=== PATIENT | female | born 1965 | race Caucasian/White ===

== ENCOUNTER 2018-09-13 16:35 | Emergency (ER) | payer OTHER ==
[2018-09-13 16:43] VITALS: RESP 18
[2018-09-13] MEDS ORDERED: AMOXIC-POT CLAV 875-125MG 1 EACH TAB PO STA (16:58)
[2018-09-13] MEDS ORDERED: DIPH,PERTUS(ACELL)TETVAC-LF 0.5 ML VIAL IM ONE (16:58)
[2018-09-13] MEDS ORDERED: WATER FOR IRRIG, STERILE 1,000 ML BTL IRRIGATION ONE (16:58)
--- NOTE | 2018-09-13 17:27 | XR ---
PROCEDURE: XR hand complete RT - 3V DATE AND TIME: 09/13/2018 5:20 PM CLINICAL INDICATION: PHH; Pain TECHNIQUE: Department protocol COMPARISON: None FINDINGS: There is no fracture or malalignment. The soft tissues are unremarkable. IMPRESSION: NO ACUTE PROCESS.
--- NOTE | 2018-09-13 17:58 | ED ---
General Adult HPI - General Chief complaint: Animal Bite Stated complaint: Dog bite, hand injury-[facility] Time Seen by Provider: 09/13/18 16:40 Source: patient, RN notes reviewed, old records reviewed Mode of arrival: ambulatory Limitations: no limitations - History of Present Illness Initial comments: 52-year-old female patient with no pertinent past medical history presents ED for dog bite. 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 Patient states that this was a larger dog. Patient does have superficial abrasions to the medial and lateral aspect of her dorsal right hand. Patient does not have any open lacerations. Patient states that the isolated the dog had all of his shots. Denies any other injury. Patient does not know date of last tetanus. Systemic: Pt denies fatigue, myalgia, fever/chills, rash. Pt denies weakness, night sweats, weight loss. Neuro: Pt denies headache, visual disturbances, syncope or pre-syncope. HEENT: Pt denies ocular discharge or irritation, otalgia, rhinorrhea, pharyngitis or notable lymphadenopathy. Cardiopulmonary: Pt denies chest pain, SOB, heart palpitations, dyspnea on exertion. Abdominal/GI: Pt denies abdominal pain, n/v/d. : Pt denies dysuria, burning w/ urination, frequency/urgency. Denies new onset urinary or bowel incontinence. MSK: Pt denies myalgia, loss of strength or function in extremities. Neuro: Pt denies new onset weakness, paresthesias. - Related Data Previous Rx's Medication Instructions Recorded Amoxicillin/Potassium Clav 1 each PO Q12HR #20 tab 12/06/13 [Augmentin 875-125 Tablet] Amoxicillin/Potassium Clav 1 each PO Q12HR #20 tab 09/13/18 [Augmentin 875-125 Tablet] Allergies Allergy/AdvReac Type Severity Reaction Status Date / Time seasonal allergies Allergy Unknown Uncoded 09/13/18 16:43 Review of Systems ROS Statement: Those systems with pertinent positive or pertinent negative responses have been documented in the HPI. ROS Other: All systems not noted in ROS Statement are negative. Past Medical History Past Medical History: No Reported History History of Any Multi-Drug Resistant Organisms: None Reported Additional Past Surgical History / Comment(s): elbow surgery Past Psychological History: No Psychological Hx Reported Smoking Status: Current every day smoker Past Alcohol Use History: Occasional Past Drug Use History: None Reported General Exam - General Exam Comments Initial Comments: Constitutional: NAD, AOX3, Pt has pleasant affect. HEENT: NC/AT, trachea midline, neck supple, no lymphadenopathy. Posterior pharynx non erythematous, without exudates. External ears appear normal, without discharge. Mucous membranes moist. Eyes PERRLA, EOM intact. There is no scleral icterus. No pallor noted. Cardiopulmonary: RRR, no murmurs, rubs or gallops, no JVD noted. Lungs CTAB in anterior and posterior goldberg. No peripheral edema. Abdominal exam: Abdomen soft and non-distended. Abdomen non-tender to palpation in all 4 quadrants. Bowel sounds active in LLQ. No hepatosplenomegaly. No ecchymosis Neuro: CN II-XII grossly intact. No nuchal rigidity. MSK: Superficial abrasions noted to lateral and medial aspect of dorsal right hand. Full active range of motion of all digits. Capillary refill less than 2 seconds all digits. Sensation intact. No open lacerations. Wounds vigorously irrigated with 1 L normal saline. No posterior calf tenderness bilaterally, homans sign negative bilaterally. Posterior tibialis and radial pulse +2 bilaterally. Sensation intact in upper and lower extremities. Full active ROM in upper and lower extremities, 5/5 stregnth. Limitations: no limitations Course Vital Signs 09/13/18 09/13/18 16:41 18:19 Temperature 98 F 98.2 F Pulse Rate 104 H 87 Respiratory 18 18 Rate Blood Pressure 164/96 158/87 O2 Sat by Pulse 99 98 Oximetry Medical Decision Making - Medical Decision Making 52-year-old female patient with no pertinent past medical history presents ED for dog bite. 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 Patient states that this was a larger dog. Patient does have superficial abrasions to the medial and lateral aspect of her dorsal right hand. Patient does not have any open lacerations. Patient states that the isolated the dog had all of his shots. Denies any other injury. Patient does not know date of last tetanus. Pt VSS, afebrile. Physical exam displayed: Superficial abrasions noted to lateral and medial aspect of dorsal right hand. Full active range of motion of all digits. Capillary refill less than 2 seconds all digits. Sensation intact. No open lacerations. Wounds vigorously irrigated with 1 L normal saline. Plain film of right hand displayed no acute process. Patient tetanus updated. Patient offered and declined rabies prophylaxis. Patient administered 1 dose of Augmentin in ED. Patient discharged with 10 days of Augmentin. Patient will follow up with primary care provider in 1-2 days. Patient monitor for signs symptoms of infection. Patient return to ER if condition worsens. Case discussed with Dr. Samson. Disposition Clinical Impression: Dog bite Disposition: HOME SELF-CARE Instructions (If sedation given, give patient instructions): Animal Bite (ED) Additional Instructions: Patient to adhere to previously discussed treatment plan and will take medication(s) as directed. Patient to follow up with PCP in 1-2 days. Patient to return to ED if symptoms do not improve. Take antibiotics as prescribed. Return to ER if condition worsens. Follow-up with primary care provider in 1-2 days. Please monitor for signs and symptoms of infection including: redness, warmth, drainage, discharge. Please return to ED if these signs or symptoms occur, new signs or symptoms develop or if condition worsens in anyway. Prescriptions: Amoxicillin/Potassium Clav [Augmentin 875-125 Tablet] 1 each PO Q12HR #20 tab Is patient prescribed a controlled substance at d/c from ED?: No Referrals: Jana Gonzalez MD [Primary Care Provider] - 1-2 days
[2018-09-13 18:20] VITALS: BP 158/87; PULSE 87; TEMP 98.2
== END 2018-09-13 18:19 | disposition home or self-care (01) ==
LOC: EC 16:35
DX: S60.571A Other superficial bite of hand of right hand, initial encounter (principal); F17.200 Nicotine dependence, unspecified, uncomplicated; Z23 Encounter for immunization; Z98.890 Other specified postprocedural states; Z91.048 Other nonmedicinal substance allergy status; W54.0XXA Bitten by dog, initial encounter; Y92.69 Other specified industrial and construction area as the place of occurrence of the external cause; Y99.0 Civilian activity done for income or pay; Y93.89 Activity, other specified
CPT/HCPCS: 90471; 90715; 99284

== ENCOUNTER 2020-02-22 09:09 | Observation (INO) | payer BC, OTHER ==
[2020-02-22] MEDS ORDERED: ASPIRIN 81 MG PO STA (09:34)
[2020-02-22] MEDS ORDERED: NITROGLYCERIN OINT 1 INCH/GM PACKET TOPICAL STA (09:34)
[2020-02-22 10:07] LABS: Basophils # (A) 0.1 k/uL (0-0.2); Basophils % (A) 1 %; Eosinophils # (A) 0.1 k/uL (0-0.7); Eosinophils % (A) 2 %; HCT 48.9 % (34.0-46.0); HGB 16.8 gm/dL (11.4-16.0); Lymphocytes # (A) 1.9 k/uL (1.0-4.8); Lymphocytes % (A) 26 %; MCH 33.9 pg (25.0-35.0); MCHC 34.4 g/dL (31.0-37.0); MCV 98.5 fL (80.0-100.0); Mean Platelet Volume 7.4; Monocytes # (A) 0.3 k/uL (0-1.0); Monocytes % (A) 4 %; Neutrophils # (A) 4.9 k/uL (1.3-7.7); Neutrophils % (A) 67 %; Platelet Count 221 k/uL (150-450); RBC 4.97 m/uL (3.80-5.40); RDW 12.2 % (11.5-15.5); WBC 7.3 k/uL (3.8-10.6)
[2020-02-22 10:17] LABS: Partial Thromboplastin Time 25.7 sec (22.0-30.0); Prothrombin Time 10.4 sec (9.0-12.0)
[2020-02-22 10:18] LABS: ALT 20 U/L (4-34); AST 29 U/L (14-36); African American GFR (CKD) >90 (>60 ml/min/1.73 sqM); Albumin 4.5 g/dL (3.5-5.0); Alkaline Phosphatase 99 U/L (38-126); Anion Gap 8 mmol/L; Blood Urea Nitrogen 10 mg/dL (7-17); Calcium 9.4 mg/dL (8.4-10.2); Carbon Dioxide 24 mmol/L (22-30); Chloride 108 mmol/L (98-107); Glucose 103 mg/dL (74-99); Non-African American GFR(CKD) >90 (>60 ml/min/1.73 sqM); Potassium 4.6 mmol/L (3.5-5.1); Sodium 140 mmol/L (137-145); Total Protein 7.5 g/dL (6.3-8.2)
--- NOTE | 2020-02-22 10:24 | XR ---
EXAMINATION TYPE: XR chest 2V DATE OF EXAM: 02/22/2020 CLINICAL HISTORY: Chest pain TECHNIQUE: Frontal and lateral views of the chest are obtained. COMPARISON: None FINDINGS: The cardiomediastinal silhouette is within normal limits for size. Pulmonary vasculature i s normal. There is no focal air space opacity, pleural effusion, or pneumothorax seen. Scoliotic curv ature of the spine. IMPRESSION: No acute cardiopulmonary process.
--- NOTE | 2020-02-22 10:25 | ED ---
General Adult HPI - General Chief complaint: Shortness of Breath Stated complaint: Abn EKG Source: patient, RN notes reviewed, old records reviewed Mode of arrival: wheelchair Limitations: no limitations - History of Present Illness Initial comments: This is a 54-year-old female presents emergency Department with a past medical history significant for smoking. Patient denies any family history patient denies any high blood pressure diabetes or high cholesterol. Patient states she's been having right lateral chest discomfort for about a week and a half. Patient states it's worse with coughing or with moving of the chest wall. Patient denies any shortness of breath or difficulty breathing. Patient denies any fever chills. Patient states just since yesterday she started coughing prior to that there was no coughing. Patient states the coughing deftly increases the pain. 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 The pain comes and goes as though movement begins stops. Patient denies any nausea vomiting or diarrhea. Patient denies any abdominal pain. Patient denies any known injury. Patient states currently lying in bed he feels good when she coughs. Patient denies any sputum production. Patient denies any calf pain or swelling of the legs - Related Data Home Medications Medication Instructions Recorded Confirmed Chirag/D3/Mag11/Zinc/Environmental Attorney/Francisco Javier/Bor 1 tab PO DAILY 02/22/20 02/22/20 [Caltrate 600+D Plus Tablet] Multivitamins, Thera [Multivitamin 1 tab PO DAILY 02/22/20 02/22/20 (formulary)] Allergies Allergy/AdvReac Type Severity Reaction Status Date / Time seasonal allergies Allergy Unknown Uncoded 02/22/20 10:29 Review of Systems ROS Statement: Those systems with pertinent positive or pertinent negative responses have been documented in the HPI. ROS Other: All systems not noted in ROS Statement are negative. Past Medical History Past Medical History: No Reported History History of Any Multi-Drug Resistant Organisms: None Reported Past Surgical History: Orthopedic Surgery Additional Past Surgical History / Comment(s): elbow surgery Past Psychological History: No Psychological Hx Reported Smoking Status: Current every day smoker Past Alcohol Use History: Occasional Past Drug Use History: None Reported General Exam - General Exam Comments Initial Comments: GENERAL: Patient is well-developed and well-nourished. Patient is nontoxic and well- hydrated and is in no acute distress. ENT: Neck is soft and supple. No significant lymphadenopathy is noted. Oropharynx is clear. Moist mucous membranes. Neck has full range of motion without eliciting any pain. EYES: The sclera were anicteric and conjunctiva were pink and moist. Extraocular movements were intact and pupils were equal round and reactive to light. Eyelids were unremarkable. PULMONARY: Unlabored respirations. Good breath sounds bilaterally. No audible rales rhonchi or wheezing was noted. CARDIOVASCULAR: There is a regular rate and rhythm without any murmurs gallops or rubs. No pain on palpation of the lateral chest wall the right ABDOMEN: Soft and nontender with normal bowel sounds. SKIN: Skin is clear with no lesions or rashes and otherwise unremarkable. NEUROLOGIC: Patient is alert and oriented x3. Cranial nerves II through XII are grossly i ntact. Motor and sensory are also intact. Normal speech, volume and content. Symmetrical smile. MUSCULOSKELETAL: Normal extremities with adequate strength and full range of motion. LYMPHATICS: No significant lymphadenopathy is noted PSYCHIATRIC: Normal psychiatric evaluation. Limitations: no limitations Course Vital Signs 02/22/20 02/22/20 02/22/20 09:20 10:32 11:31 Temperature 98.2 F Pulse Rate 104 H 101 H 96 Respiratory 18 18 18 Rate Blood Pressure 138/88 134/96 134/88 O2 Sat by Pulse 98 98 95 Oximetry Medical Decision Making - Medical Decision Making EKG shows a sinus tachycardia 103 bpm ME interval is 142 QRS is 110 Q-T is 374 Q TC is 489. EKG shows no significant ST segment elevation or depression Patient was experiencing some right-sided chest discomfort and when she was given Nitropaste she states shortly thereafter. Absent no discomfort whatsoever. [facility] the patient wrote admitting orders I consulted cardiology. - Lab Data Result diagrams: 02/22/20 09:52 02/22/20 09:52 Lab Results 02/22/20 02/22/20 02/22/20 Range/Units 09:52 09:52 09:52 WBC 7.3 (3.8-10.6) k/uL RBC 4.97 (3.80-5.40) m/uL Hgb 16.8 H (11.4-16.0) gm/dL Hct 48.9 H (34.0-46.0) % MCV 98.5 (80.0-100.0) fL MCH 33.9 (25.0-35.0) pg MCHC 34.4 (31.0-37.0) g/dL RDW 12.2 (11.5-15.5) % Plt Count 221 (150-450) k/uL Neutrophils % 67 % Lymphocytes % 26 % Monocytes % 4 % Eosinophils % 2 % Basophils % 1 % Neutrophils # 4.9 (1.3-7.7) k/uL Lymphocytes # 1.9 (1.0-4.8) k/uL Monocytes # 0.3 (0-1.0) k/uL Eosinophils # 0.1 (0-0.7) k/uL Basophils # 0.1 (0-0.2) k/uL PT 10.4 (9.0-12.0) sec INR 1.0 (<1.2) APTT 25.7 (22.0-30.0) sec D-Dimer (<0.60) mg/L FEU Sodium 140 (137-145) mmol/L Potassium 4.6 (3.5-5.1) mmol/L Chloride 108 H (98-107) mmol/L Carbon Dioxide 24 (22-30) mmol/L Anion Gap 8 mmol/L BUN 10 (7-17) mg/dL Creatinine 0.71 (0.52-1.04) mg/dL Est GFR (CKD-EPI)AfAm >90 (>60 ml/min/1.73 sqM) Est GFR (CKD-EPI)NonAf >90 (>60 ml/min/1.73 sqM) Glucose 103 H (74-99) mg/dL Calcium 9.4 (8.4-10.2) mg/dL Magnesium 2.4 H (1.6-2.3) mg/dL Total Bilirubin 1.0 (0.2-1.3) mg/dL AST 29 (14-36) U/L ALT 20 (4-34) U/L Alkaline Phosphatase 99 (38-126) U/L Troponin I (0.000-0.034) ng/mL Total Protein 7.5 (6.3-8.2) g/dL Albumin 4.5 (3.5-5.0) g/dL 02/22/20 02/22/20 Range/Units 09:52 09:52 WBC (3.8-10.6) k/uL RBC (3.80-5.40) m/uL Hgb (11.4-16.0) gm/dL Hct (34.0-46.0) % MCV (80.0-100.0) fL MCH (25.0-35.0) pg MCHC (31.0-37.0) g/dL RDW (11.5-15.5) % Plt Count (150-450) k/uL Neutrophils % % Lymphocytes % % Monocytes % % Eosinophils % % Basophils % % Neutrophils # (1.3-7.7) k/uL Lymphocytes # (1.0-4.8) k/uL Monocytes # (0-1.0) k/uL Eosinophils # (0-0.7) k/uL Basophils # (0-0.2) k/uL PT (9.0-12.0) sec INR (<1.2) APTT (22.0-30.0) sec D-Dimer 0.56 (<0.60) mg/L FEU Sodium (137-145) mmol/L Potassium (3.5-5.1) mmol/L Chloride (98-107) mmol/L Carbon Dioxide (22-30) mmol/L Anion Gap mmol/L BUN (7-17) mg/dL Creatinine (0.52-1.04) mg/dL Est GFR (CKD-EPI)AfAm (>60 ml/min/1.73 sqM) Est GFR (CKD-EPI)NonAf (>60 ml/min/1.73 sqM) Glucose (74-99) mg/dL Calcium (8.4-10.2) mg/dL Magnesium (1.6-2.3) mg/dL Total Bilirubin (0.2-1.3) mg/dL AST (14-36) U/L ALT (4-34) U/L Alkaline Phosphatase (38-126) U/L Troponin I <0.012 (0.000-0.034) ng/mL Total Protein (6.3-8.2) g/dL Albumin (3.5-5.0) g/dL Disposition Clinical Impression: Chest pain Disposition: ADMITTED IP TO THIS HOSP Referrals: Jana Gonzalez MD [Primary Care Provider] - 1-2 days Time of Disposition: 11:36
[2020-02-22 10:36] LABS: Magnesium 2.4 mg/dL (1.6-2.3)
[2020-02-22] MEDS ORDERED: NITROGLYCERIN SL TABS 0.4 MG TAB SUBLINGUAL PRN (11:37)
[2020-02-22 13:55] LABS: Cholesterol 262 mg/dL (<200); HDL Cholesterol 54 mg/dL (40-60); LDL Cholesterol,Calculated 166 mg/dL (0-99); Triglycerides 210 mg/dL (<150)
[2020-02-22] MEDS ORDERED: NITROGLYCERIN OINT 1 INCH/GM PACKET TOPICAL SCH (14:00)
[2020-02-22] MEDS ORDERED: RX INFO: IV CONTRAST WAS GIVEN 1 EACH MISC MISCELLANE PRN (16:16)
[2020-02-22] MEDS ORDERED: ALPRAZolam 0.25 MG TAB PO PRN (16:18)
[2020-02-22] MEDS ORDERED: HYDROmorphone 0.5 MG/0.5 ML SYRINGE IVP PRN (16:18)
[2020-02-22] MEDS ORDERED: TEMAZEPAM 15 MG CAP PO PRN (16:18)
[2020-02-22] MEDS ORDERED: HYDROcodone/APAP 5-325MG 1 EACH TAB PO PRN (16:18)
--- NOTE | 2020-02-22 17:17 | CT ---
EXAMINATION TYPE: CT chest w con DATE OF EXAM: 02/22/2020 COMPARISON: None HISTORY: Chest pain CT DLP: mGycm Automated exposure control for dose reduction was used. Images were obtained from the thoracic inlet to the diaphragm with IV contrast Isovue 100 mL. FINDINGS: Mediastinum is normal. There is no mediastinal adenopathy. Thoracic aorta is intact. There is no aneu rysm or dissection. Ascending aorta measures 3.4 cm. Heart appears slightly enlarged. There is no per icardial effusion. There is no pleural effusion. There are no hilar masses. Pulmonary arteries appear normal. There is minimal linear density at the lung bases. There is no evidence of a pulmonary mass. There is no pulmonary consolidation. There is thoracic dextroscoliotic deformity. There is a thoracolumbar levoscoliosis. There is no thor acic compression fracture. Sternum is intact. The ribs appear intact. IMPRESSION: Cardiomegaly. Minimal subsegmental atelectasis at the lung bases. No suspicious pulmonary mass.
--- NOTE | 2020-02-22 17:42 | ECHOF ---
Referral Reason:cp MEASUREMENTS -------- HEIGHT: 175.3 cm WEIGHT: 80.3 kg BP: 140/86 RVIDd: 2.5 cm (< 3.3) IVSd: 0.9 cm (0.6 - 1.1) LVIDd: 6.8 cm (3.9 - 5.3) LVPWd: 1.2 cm (0.6 - 1.1) IVSs: 1.1 cm LVIDs: 5.7 cm LVPWs: 1.4 cm LA Diam: 4.5 cm (2.7 - 3.8) Ao Diam: 2.5 cm (2.0 - 3.7) AV Cusp: 1.5 cm (1.5 - 2.6) MV EXCURSION: 18.048 mm (> 18.000) MV EF SLOPE: 83 mm/s (70 - 150) EPSS: 2.0 cm MV E Juan Francisco: 0.63 m/s MV DecT: 156 ms MV A Juan Francisco: 0.80 m/s MV E/A Ratio: 0.78 RAP: 5.00 mmHg RVSP: 10.85 mmHg FINDINGS -------- Sinus rhythm. This was a techncally difficult study with suboptimal views, , Lumason utilized for enhancement of im ages. The left ventricle is severely dilated. There is borderline concentric left ventricular hypertrophy . Overall left ventricular systolic function is severely impaired with, an EF < 20%. The right ventricle is normal in size. The left atrium is moderately dilated. The right atrial size is normal. The aortic valve is trileaflet, and appears structurally normal. No aortic stenosis or regurgitation. The mitral valve is normal. [id number] mitral regurgitation is present. The tricuspid valve appears structurally normal. Mild tricuspid regurgitation present. Right vent ricular systolic pressure is normal at < 35 mmHg. There is no pulmonic regurgitation present. The aortic root size is normal. There is no pericardial effusion. CONCLUSIONS -------- 1. This was a techncally difficult study with suboptimal views, , Lumason utilized for enhancement of images. 2. The left ventricle is severely dilated. 3. There is borderline concentric left ventricular hypertrophy. 4. Overall left ventricular systolic function is severely impaired with, an EF < 20%. 5. The left atrium is moderately dilated. 6. The aortic valve is trileaflet, and appears structurally normal. No aortic stenosis or regurgitati on. 7. Dhei-[id number] mitral regurgitation is present. 8. Mild tricuspid regurgitation present. 9. There is no pericardial effusion. BASKETBALL COACH: Bryanna Jefferson RDCS
[2020-02-22] MEDS: METOPROLOL SUCCINATE (ER) 25 MG TAB.ER.24H PO SCH (17:53)
[2020-02-22] MEDS: CALCIUM CARB-VIT D 500MG-200UN 1 EACH TAB PO SCH (17:53)
[2020-02-22] MEDS: lisinopriL 5 MG TAB PO SCH (17:53)
[2020-02-22] MEDS: SPIRONOLACTONE 25 MG TAB PO SCH (17:53)
[2020-02-22] MEDS: PANTOPRAZOLE 40 MG/10 ML VIAL IVP SCH (17:53)
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
--- NOTE | 2020-02-22 18:13 | CONS ---
CONSULTATION Mrs. Almodovar is 54-year-old female with no prior documented history of cardiac disease, history of chronic tobacco use, who presented with symptoms of right-sided chest discomfort. For the last week, she has been complaining of dyspnea on exertion, and last night she was coughing frequently and started to complain of right-sided discomfort, worse with deep breathing and coughing. She has no prior documented history of cardiac disease. She is reasonably active physically without any difficulty, has no exertional chest discomfort on a regular basis. She smokes about a half a pack a day. She has no history of PND, orthopnea or peripheral edema. No dizziness, palpitation or syncope. She has had no prior cardiac workup. She has a history of smoking, as noted. Her medication at home includes multivitamins. REVIEW OF SYSTEMS: RESPIRATORY SYSTEM: She has the dyspnea on exertion, the cough, occasional wheezing. GI SYSTEM: No recent GI bleeding. No peptic ulcer disease. SYSTEM: No dysuria or hematuria. NERVOUS SYSTEM: No history of stroke or seizure. PHYSICAL EXAMINATION: This is a 54-year-old female, alert, oriented, in no apparent distress. Blood pressure 140/80 with a heart rate in the 90s. Afebrile. HEAD: Normocephalic. Eyes: Sclerae anicteric. NECK: Good carotid upstroke. No bruit. No jugular venous distention. LUNGS: Clear to auscultation. HEART: Regular rate and rhythm. S1, S2. No S3. No S4. No murmur or rub. ABDOMEN: Soft, nontender. Positive bowel sounds. No organomegaly. EXTREMITIES: No edema. Intact distal pulses. LAB DATA: Lab data revealed BUN and creatinine of 10 and 0.7, potassium 4.6. Troponin less than 0.012. Hemoglobin of 16.8, white blood cell count of 7.3. EKG revealed a sinus mechanism, rate of 103, borderline intraventricular conduction delay with left atrial enlargement. Chest x-ray shows no acute infiltrate. IMPRESSION: 1. Chest discomfort, atypical for ischemic heart disease. Appears to be respirophasic and musculoskeletal. 2. Dyspnea and cough, probably related to bronchitis in a patient with known history of chronic tobacco use. 3. Chronic tobacco use. RECOMMENDATIONS: From the cardiac standpoint, we will obtain serial enzymes and repeat her EKG. If she has no evidence of enzymatic changes, then I would recommend proceeding with myocardial perfusion imaging that can be done as an outpatient once her bronchitis resolves. At the same time we will obtain echocardiogram with Doppler and depending on that, further recommendations will be made. Thank you for this consult. Will follow with you. REGINA / GUERLINEN: [id number] /
[2020-02-22 19:55] LABS: Appearance,Urine Clear (Clear); Bilirubin,Urine Negative (Negative); Blood,Urine Negative (Negative); Color,Urine Colorless; Glucose,Urine (UA) Negative (Negative); Ketones,Urine Negative (Negative); Leukocyte Esterase,Urine Negative (Negative); Nitrite,Urine Negative (Negative); PH, Urine 6.5 (5.0-8.0); Protein,Urine Negative (Negative); Specific Gravity,Urine 1.016 (1.001-1.035); Urobilinogen,Urine <2.0 mg/dL (<2.0)
[2020-02-22 20:30] LABS: Amphetamine Screen,Urine Not Detected (NotDetected); Barbiturate Screen,Urine Not Detected (NotDetected); Benzodiazepines Screen,Urine Not Detected (NotDetected); Cocaine Screen,Urine Not Detected (NotDetected); Methadone Screen, Urine Not Detected (NotDetected); Opiate Screen,Urine Not Detected (NotDetected); Oxycodone Screen, Urine Not Detected (NotDetected); Phencyclidine Screen,Urine Not Detected (NotDetected); Tricyclic Antidepressant,Urine Not Detected (NotDetected); Urn Cannabinoid Scrn Not Detected (NotDetected)
[2020-02-22] MEDS ORDERED: ATORVASTATIN 40 MG TAB PO SCH (21:00)
[2020-02-23 04:46] VITALS: RESP 16
[2020-02-23 07:05] LABS: Basophils # (A) 0.1 k/uL (0-0.2); Basophils % (A) 1 %; Eosinophils # (A) 0.1 k/uL (0-0.7); Eosinophils % (A) 2 %; HCT 47.6 % (34.0-46.0); HGB 15.4 gm/dL (11.4-16.0); Lymphocytes # (A) 1.9 k/uL (1.0-4.8); Lymphocytes % (A) 35 %; MCH 32.9 pg (25.0-35.0); MCHC 32.4 g/dL (31.0-37.0); MCV 101.6 fL (80.0-100.0); Macrocytosis Slight; Mean Platelet Volume 7.5; Monocytes # (A) 0.3 k/uL (0-1.0); Monocytes % (A) 5 %; Neutrophils % (A) 56 %; Platelet Count 212 k/uL (150-450); RBC 4.69 m/uL (3.80-5.40); RDW 12.9 % (11.5-15.5); WBC 5.4 k/uL (3.8-10.6)
[2020-02-23 07:14] LABS: Calcium 9.5 mg/dL (8.4-10.2); Potassium 4.5 mmol/L (3.5-5.1)
[2020-02-23] MEDS ORDERED: NITROGLYCERIN SL TABS 0.4 MG TAB SUBLINGUAL PRN (08:00)
[2020-02-23] MEDS ORDERED: ALPRAZolam 0.5 MG TAB PO PRN (08:00)
[2020-02-23] MEDS ORDERED: SODIUM CHLORIDE 0.9% 1,000 ML in EMPTY BAG 1 BAG IV ONE (08:00)
[2020-02-23] MEDS ORDERED: ATORVASTATIN 80 MG TAB PO STA (08:00)
[2020-02-23] MEDS ORDERED: ALPRAZolam 0.25 MG TAB PO PRN (08:00)
[2020-02-23] MEDS ORDERED: ASPIRIN 325 MG TAB PO STA (08:00)
[2020-02-23] MEDS: SPIRONOLACTONE 25 MG TAB PO SCH (08:56)
[2020-02-23] MEDS: PANTOPRAZOLE 40 MG/10 ML VIAL IVP SCH (08:56)
[2020-02-23] MEDS: METOPROLOL SUCCINATE (ER) 25 MG TAB.ER.24H PO SCH (08:57)
[2020-02-23] MEDS: CALCIUM CARB-VIT D 500MG-200UN 1 EACH TAB PO SCH (08:57)
[2020-02-23] MEDS: lisinopriL 5 MG TAB PO SCH (08:57)
[2020-02-23] MEDS ORDERED: ASPIRIN 325 MG TAB PO SCH (09:00)
[2020-02-23] MEDS ORDERED: NICOTINE 14MG/24HR PATCH TRANSDERM SCH (09:00)
[2020-02-23] MEDS ORDERED: MULTIVITAMINS, THERA 1 EACH TAB PO SCH (09:00)
[2020-02-23] MEDS ORDERED: ASPIRIN 81 MG PO SCH (09:00)
[2020-02-23] MEDS ORDERED: SODIUM CHLORIDE 0.9% 1,000 ML IV ONE (09:53)
[2020-02-23] MEDS ORDERED: fentaNYL (PF) 50 MCG/ML 2 ML AMP ONE (09:54)
[2020-02-23] MEDS ORDERED: HEPARIN SODIUM 1,000 UN/ML (10ML VL) ONE (09:54)
[2020-02-23] MEDS ORDERED: fentaNYL (PF) 50 MCG/ML 2 ML AMP IVP ONE (10:04)
[2020-02-23] MEDS ORDERED: LIDOCAINE 1% INJ 10MG/ML (20 ML MDV) SQ ONE (10:07)
[2020-02-23] MEDS ORDERED: VERAPAMIL SYRINGE (5 MG/10 ML) INTRAARTER ONE (10:22)
[2020-02-23] MEDS ORDERED: MIDAZOLAM 2 MG/2 ML VIAL IVP ONE (10:26)
[2020-02-23] MEDS ORDERED: HEPARIN SODIUM 1,000 UN/ML (10ML VL) IV ONE (10:28)
[2020-02-23] MEDS ORDERED: IOPAMIDOL-370 125ML BTL INJ ONE (10:35)
[2020-02-23] MEDS ORDERED: RX INFO: IV CONTRAST WAS GIVEN 1 EACH MISC MISCELLANE PRN (10:50)
[2020-02-23] MEDS ORDERED: SODIUM CHLORIDE 0.9% 1,000 ML IV SCH (11:00)
--- NOTE | 2020-02-23 11:34 | CC ---
CARDIAC CATHETERIZATION REPORT Mrs. Almodovar is 54-year-old female with no history of coronary artery disease who presented with symptoms of dyspnea and right-sided chest discomfort. Her cardiac enzymes were unremarkable, but her echocardiogram revealed a severely impaired left ventricular systolic function. In view of that, recommendation regarding cardiac catheterization, the procedures, risks, and complication were discussed with the patient who is in full understanding and agreement. PROCEDURE: Patient was brought to ear mold laboratory technician in a fasting semi-sedated state after receiving fentanyl and Benadryl and achieving moderate conscious sedated state. Using Xylocaine anesthesia and Seldinger technique a 6-American sheath was introduced in the right radial artery. Subsequently, the intravenous catheter in the right brachial area was exchanged to a 6-American sheath, but there was inability to advance the Clio-Pb catheter. At that time, selective right and left coronary angiography performed using 5-American, 3.5-half bend right and left Christiano catheter, multiple views of the coronary artery including hemiaxial views obtained. Following that, a 5-American tight pigtail catheter was inserted in the left ventricle and a 30-degree SHARMA view of the left ventricle was obtained. Following that, catheter and sheath were removed. Hemostasis was obtained with deployment of a TR band. There was no immediate complication. Patient was returned to her room in stable condition. Of note, the patient received 4000 units of intravenous heparin as well as intra-arterial verapamil. There was no immediate complication. FINDINGS: LEFT MAIN: This is a short size vessel, bifurcating into left circumflex, left anterior descending artery. Left main coronary artery has no evidence of high-grade stenosis. LEFT ANTERIOR DESCENDING ARTERY: This is a large-sized vessel, reaching toward the apex, giving rise to a diagonal branch of large caliber. The left anterior descending artery as well as branches have no evidence of obstructive coronary artery disease. LEFT CIRCUMFLEX: This is a nondominant vessel, giving rise to a very proximal obtuse marginal branch. The second obtuse marginal branch is much larger in caliber. The left circumflex as well as branches have no evidence of obstructive coronary artery disease. RIGHT CORONARY ARTERY: This is a moderately-sized, dominant vessel giving rise to a PDA distally. The right coronary artery as well as branches have no evidence of obstructive coronary artery disease. LEFT VENTRICULOGRAM: Left ventriculogram Is performed in 30-degree SHARMA view, reveals severe global hypokinesis, ejection fraction is about 20%. There was 2+ mitral regurgitation. HEMODYNAMICS: There was no gradient across the aortic valve. The left ventricular end- diastolic pressure was 32 mmHg. CONCLUSION: 1. Normal coronary artery. 2. Severely impaired left ventricular systolic function. RECOMMENDATION: The findings are consistent with nonischemic cardiomyopathy of unclear etiology. At this time, I would maximize her medical therapy and depending on her progress, further recommendation will be made. Those findings and recommendations were discussed with the patient and her family and they are in full understanding and agreement. Duration of the sedation is 34 minutes. MMODL / IJN: [id number] /
[2020-02-23 11:52] LABS: Glucose,Whole Blood 93 mg/dL (75-99)
[2020-02-23 14:25] VITALS: PULSE 86
[2020-02-23 15:09] VITALS: BP 128/79; TEMP 98.3
[2020-02-23] MEDS ORDERED: FUROSEMIDE 20 MG TAB PO SCH (21:00)
--- NOTE | 2020-02-23 22:25 | DS ---
DISCHARGE SUMMARY DATE OF SERVICE: 02/23/2020 FINAL DIAGNOSES: 1. Chest pain, possibly musculoskeletal; negative cardiac catheterization. 2. Severely impaired left ventricular systolic dysfunction with possibly nonischemic cardiomyopathy, ejection fraction less than 20%. 3. Mild to moderate mitral regurgitation. 4. Possibly musculoskeletal pain. 5. Hyperlipidemia. 6. Hypoglycemia. 7. History of gastroesophageal reflux disease. 8. Degenerative joint disease. 9. History of hernia. 10.Anxiety, depression. 11.History of nicotine dependence. DISCHARGE DISPOSITION: The patient will be discharged in stable condition with guarded prognosis. Discharge cleared by Cardiology. HISTORY OF PRESENT ILLNESS: This 54-year-old woman was admitted with complaints of right-sided chest pain. Myocardial infarction Cardiology performed cardiac catheterization which showed normal coronary arteries, but the LV function was severely depressed. Nonischemic cardiomyopathy was noted. Ejection fraction less than 20%. Recommended close followup in the outpatient setting. On exam, vitals are stable. CARDIOVASCULAR SYSTEM: S1, S2 muffled. ABDOMEN: Soft. NERVOUS SYSTEM: No focal deficit. DISCHARGE ADVICE AND MEDICATIONS: 1. Diet is cardiac. 2. Activity limited until followup. 3. Follow up with Dr. Gonzalez in 1-2 days. 4. Follow up with Cardiology as recommended. 5. Multivitamins 1 p.o. daily. 6. Aldactone 25 mg daily. 7. Lipitor 40 mg at bedtime. 8. Metoprolol 25 mg p.o. daily. 9. Tylenol 500 mg q.6 p.r.n. 10.Zestril 5 mg p.o. daily. Once again, the patient will be discharged in stable condition with guarded prognosis. MMODL / IJN: [id number] / MTDD
== END 2020-02-23 14:52 | disposition home or self-care (01) ==
LOC: EC 09:09 → 3NCARDOBS 11:36
PROVIDERS: ADMIT Internal Medicine; ATTEND Internal Medicine
DX: R07.89 Other chest pain (principal); R05 Cough; R00.0 Tachycardia, unspecified; R06.02 Shortness of breath; R06.00 Dyspnea, unspecified; I51.89 Other ill-defined heart diseases; I34.0 Nonrheumatic mitral (valve) insufficiency; E78.5 Hyperlipidemia, unspecified; E16.2 Hypoglycemia, unspecified; E78.1 Pure hyperglyceridemia; K21.9 Gastro-esophageal reflux disease without esophagitis; M19.90 Unspecified osteoarthritis, unspecified site; F41.9 Anxiety disorder, unspecified; F32.9 Major depressive disorder, single episode, unspecified; I42.8 Other cardiomyopathies; J30.2 Other seasonal allergic rhinitis; E78.00 Pure hypercholesterolemia, unspecified; I45.89 Other specified conduction disorders; I51.7 Cardiomegaly; F17.210 Nicotine dependence, cigarettes, uncomplicated; Z20.828 Contact with and (suspected) exposure to other viral communicable diseases; Z98.890 Other specified postprocedural states; Z87.19 Personal history of other diseases of the digestive system; Z83.79 Family history of other diseases of the digestive system
CPT/HCPCS: 93005 ×2; 96374; 99285; 36415; 93306; 93458; 85379; 80061 ×2; 80053; 80048; 85652 ×2; 83735; 84484; 85025 ×2; 85610; 85730; 86140; 81003; 80306; 71046; 71260; G0378 ×2; C1751; C1769; C1894; U0003; S4990; J2250; J2001; J3010; J1644; C9113 ×2; Q9950; Q9967 ×2

== ENCOUNTER → 2020-04-22 | Outpatient (CLI) | payer BC ==
[2020-04-22 11:33] LABS: Albumin 4.4 g/dL (3.80-4.90); Albumin/Globulin Ratio 2.2 (1.60-3.17); BUN/Creat Ratio 15.56 Ratio (12.00-20.00); Calcium 9.6 mg/dL (8.7-10.3); Chol/HDL Ratio 3.98; LDL Cholesterol,Calculated 90.6 mg/dL (0.0-131.0); Non-African American GFR(CKD) 72.5 (60.0-200.0); Potassium 4.3 mmol/L (3.5-5.5); Total Bilirubin 0.6 mg/dL (0.3-1.2); Total Protein 6.4 g/dL (6.2-8.2); VLDL Calculation 43.4 mg/dL (5.00-40.00)
== END | disposition home or self-care (01) ==
LOC: LABWHC1 07:53
PROVIDERS: ATTEND Internal Medicine Interventional Cardiology
DX: E78.2 Mixed hyperlipidemia (principal)
CPT/HCPCS: 36415; 80053; 80061

== ENCOUNTER → 2020-07-17 | Outpatient (CLI) | payer BC ==
[2020-07-17 16:44] LABS: HCT 41.5 % (34.0-46.0); HGB 14.4 gm/dL (11.4-16.0); MCH 33.1 pg (25.0-35.0); MCHC 34.8 g/dL (31.0-37.0); MCV 95.1 fL (80.0-100.0); Mean Platelet Volume 6.8; Platelet Count 215 k/uL (150-450); RBC 4.36 m/uL (3.80-5.40); RDW 12.3 % (11.5-15.5); WBC 6.8 k/uL (3.8-10.6)
[2020-07-17 16:52] LABS: African American GFR (CKD) >90 (>60 ml/min/1.73 sqM); Anion Gap 10 mmol/L; Blood Urea Nitrogen 19 mg/dL (7-17); Carbon Dioxide 25 mmol/L (22-30); Chloride 100 mmol/L (98-107); Non-African American GFR(CKD) 82 (>60 ml/min/1.73 sqM); Potassium 4.4 mmol/L (3.5-5.1); Sodium 135 mmol/L (137-145)
== END | disposition home or self-care (01) ==
LOC: LABWHC1 16:17
PROVIDERS: ATTEND Internal Medicine Clinical Cardiac Electrophysiology
DX: Z01.812 Encounter for preprocedural laboratory examination (principal); I42.8 Other cardiomyopathies
CPT/HCPCS: 80051; 82565; 84520; 85027

== ENCOUNTER 2020-07-23 07:01 | Day surgery (SDC) | payer BC ==
[2020-07-19 11:12] VITALS: BMI 28.0
[~2020-07-23 07:01] MED LIST: SODIUM CHLORIDE 0.9% 1,000 ML IV SCH
[2020-07-23 07:20] VITALS: RESP 16; TEMP 98.3
[2020-07-23] MEDS ORDERED: fentaNYL (PF) 50 MCG/ML 2 ML AMP ONE (08:05)
[2020-07-23] MEDS ORDERED: MIDAZOLAM 2 MG/2 ML VIAL ONE (08:05)
[2020-07-23] MEDS ORDERED: KETAMINE 10 MG/ML 20 ML VIAL ONE (08:05)
[2020-07-23] MEDS ORDERED: SODIUM CHLORIDE 0.9% 500 ML 500 ML IV ONE ×2 (08:05→10:04)
[2020-07-23] MEDS ORDERED: PROPOFOL 10 MG/ML 20 ML VIAL IV ONE (08:05)
[2020-07-23] MEDS ORDERED: IOPAMIDOL-370 50ML BTL INJ ONE (08:21)
[2020-07-23] MEDS ORDERED: LIDOCAINE 1% INJ 10MG/ML (20 ML MDV) ONE (08:33)
[2020-07-23] MEDS: ceFAZolin 1 GM in SODIUM CHLORIDE 0.9% 250 ML IRRIGATION PRN ×2 (08:39→09:15)
[2020-07-23] MEDS ORDERED: LIDOCAINE 1% INJ 10MG/ML (20 ML MDV) SQ ONE (08:51)
[2020-07-23] MEDS ORDERED: ACETAMINOPHEN TAB 325 MG TAB PO PRN (10:03)
[2020-07-23] MEDS ORDERED: HYDROcodone/APAP 5-325MG 1 EACH TAB PO PRN (10:03)
--- NOTE | 2020-07-23 10:15 | P.PRLE ---
RE: Nuris Almodovar Dear Michela Lawler has severe nonischemic or myopathy which is chronic. She is on that and recommended medical treatment for heart failure She underwent a successful implantation of a single-chamber ICD for primary prevention of sudden cardiac She will continue to follow with you and Dr. Moralez as before Thank you for entrusting me with the care of the patient Warm regards Sincerely Valeriy Abbasi
[2020-07-23] MEDS ORDERED: ACETAMINOPHEN IV (For NPO) 1,000 MG in EMPTY BAG 1 BAG IVPB ONE (11:00)
--- NOTE | 2020-07-23 11:05 | CE ---
CARDIAC ELECTROPHYSIOLOGY REPORT This is a 54-year-old female with a history of nonischemic cardiomyopathy with severe LV dysfunction, class 2 heart failure who was brought in for single-chamber ICD. She has been chronically on guideline-directed medical treatment for more than 3 to 5 months. The patient was brought to the EP lab in a fasting state. Written informed consent was obtained prior to the procedure. The left shoulder area was prepped and draped as per protocol and 1% lidocaine was used for local anesthesia. A 4 cm incision was made parallel to the deltopectoral groove, about 1.5 cm medial to it. The incision was carried down to the level of the pectoralis muscle. A subfascial pocket was made. Hemostasis was assured. The left axillary vein was accessed at a single point under fluoroscopy and via an appropriately-sized introducer sheath. A lead was positioned in the right heart. This was a [employer] single coil ICD lead DF4, model #[id number], 58 cm in length and serial #[id number]. This was positioned in the RV apex. R-waves 7.6 mV, pacing impedance 899 ohms, pacing threshold 0.5 V at 0.5 milliseconds. Ten volt test was negative. The lead was secured to the underlying pectoralis fascia. Using 2 nonabsorbable sutures. Pocket was irrigated with antibiotic solution. Leads were connected to the generator ([employer] model #KIFPT807B, serial #[id number]. The leads and generator were then placed in subfascial pocket. The wound was closed in 3 layers and dressed per protocol. The device was secured to the muscle. DFT testing under anesthesia was performed. DC Fibber shock was used to induce ventricular fibrillation. This was adequately and appropriately detected at least sensitivity and successfully internally defibrillated with a 20 joule shock. A 10 joule shock was unsuccessful in the polarity. High-voltage impedance 76 ohms. Last charge time 3.8 seconds. No post shock noise. One drop out. RESULT: 1. Successful single-chamber ICD implantation. 2. Elevated DFT at 20 joules. Device was then programmed to MADIT-RIT programming with appropriate antitachycardia pacing cardioversion defibrillation. MMODL / IJN: [id number] /
--- NOTE | 2020-07-23 11:05 | PCN ---
PROCEDURE NOTE PROCEDURE: Left upper extremity venogram. Prior to starting the procedure, 15 mL of dye was injected in the left arm. The subclavian vein was opacified. Patent axillary subclavian innominate system was noted. PLAN: Proceed with a single-chamber ICD implantation. REGINA / GUERLINEN: [id number] /
--- NOTE | 2020-07-23 11:27 | XR ---
EXAMINATION TYPE: XR chest 1V portable DATE OF EXAM: 07/23/2020 COMPARISON: 02/22/2020 HISTORY: Lead placement check TECHNIQUE: Single frontal view of the chest is obtained. FINDINGS: There is no focal air space opacity, pleural effusion, or pneumothorax seen. The cardiac silhouette size is within normal limits. The osseous structures are intact. The heart is stable in size. Single lead cardiac device with the tip overlying the region of the right ventricle. Calcified density seen overlying the posterior lateral right upper lobe may represent a granuloma. Linear kate e right upper lobe most typical of atelectasis. IMPRESSION: 1. No postprocedural complication. The lead appears to overlie the region of the right ventricle. 2. There is a new 1 cm nodular density lateral margin of the right upper lobe consider follow-up CT s can of the chest.
[2020-07-23 11:40] VITALS: BP 143/70; PULSE 72
[2020-07-23] MEDS ORDERED: METOPROLOL SUCCINATE (ER) 25 MG TAB.ER.24H PO SCH (21:00)
[2020-07-23] MEDS ORDERED: lisinopriL 5 MG TAB PO SCH (21:00)
[2020-07-23] MEDS ORDERED: ATORVASTATIN 40 MG TAB PO SCH (21:00)
[2020-07-24] MEDS ORDERED: SPIRONOLACTONE 25 MG TAB PO SCH (09:00)
--- NOTE | 2020-07-29 10:01 | CDI ---
Date: 07.29.20 CDS/Thermite Bomb Loader Name: Geetha Duarte Phone: If any questions, call Winifred Hernandez Link Assembler at [phone] Patient Name: Nuris Almodovar Admit Date 07.23.20 Discharge Date: 07.23.20 ATTENTION: The [facility] Coding Staff appreciate your assistance in clarifying documentation. Please respond to the clarification below the line at the bottom and electronically sign. The [facility] Coding staff will review the response and follow-up if needed. Please note: Queries are made part of the Legal Health Record. If you have any questions, please contact the Link Assembler. Dear In order to code to the greatest specificity and for the greatest reimbursement I need the following information: Need clarification on type of Systolic CHF: __Acute __Chronic __Acute on chronic Per ANA/LCA for AICD implantion: must be billed with one of the following ICD-10-CM codes which describe the above: I50.21, I50.22, I50.23, I50.41, I50.42 or I50.43. Thank you for your kind consideration. Chronic systolic congestive heart failure MTDD
== END 2020-07-23 13:09 | disposition home or self-care (01) ==
LOC: CATHEP 07:01 → 6NMEDSUR 10:15 → CATHEP 13:09
PROVIDERS: ATTEND Internal Medicine Clinical Cardiac Electrophysiology
DX: I42.8 Other cardiomyopathies (principal); I11.0 Hypertensive heart disease with heart failure; I50.22 Chronic systolic (congestive) heart failure; I34.0 Nonrheumatic mitral (valve) insufficiency; E78.5 Hyperlipidemia, unspecified; Z79.899 Other long term (current) drug therapy; Z87.891 Personal history of nicotine dependence; Z98.890 Other specified postprocedural states; Z82.49 Family history of ischemic heart disease and other diseases of the circulatory system
CPT/HCPCS: 93641; 33249; 81025; 71045; C1769; C1722; C1777; J2250; J0690; J2001; J3010; J2704; Q9967

== ENCOUNTER → 2020-08-22 | Outpatient (CLI) | payer BC ==
--- NOTE | 2020-08-22 09:35 | CT ---
EXAMINATION TYPE: CT chest w con DATE OF EXAM: 08/22/2020 COMPARISON: Chest CT February 22, 2020. Chest x-ray July 23, 2020 HISTORY: Solitary pulmonary nodule, abnormal x-ray. CT DLP: 425.70 mGycm. Automated Exposure Control for Dose Reduction was Utilized. TECHNIQUE: CT scan of the thorax is performed following with IV Contrast, patient injected with 100 ml mL of Isovue 300. FINDINGS: LUNGS: The lungs remain grossly clear, there is no concerning new parenchymal mass or nodule identifi ed. There is no pleural effusion or pneumothorax seen. The tracheobronchial tree is patent. MEDIASTINUM: There are no greater than 1 cm hilar or mediastinal lymph nodes. No pericardial effusi on is seen. Stable mild cardiomegaly. Persistent moderate left ventricular dilatation. Persistent si ngle lead pacemaker/defibrillator terminating in right ventricle. OTHER: Underlying S-shaped scoliosis redemonstrated. Small splenule axial image 55 redemonstrated. Co rresponding to x-ray abnormality there is healing nondisplaced fracture right posterolateral sixth ri b axial image 22 with sclerosis and callus formation new from prior CT. Correlate clinically for trau matic injury roughly around 2 months earlier. IMPRESSION: No suspicious new nodules or masses. Healing or nearly healed fracture right posterolater al sixth rib corresponds to the recent x-ray abnormality.
== END | disposition home or self-care (01) ==
LOC: RADCTMAIN 07:52
PROVIDERS: ATTEND Family Medicine
DX: S22.31XD Fracture of one rib, right side, subsequent encounter for fracture with routine healing (principal)
CPT/HCPCS: 71260; Q9967

== ENCOUNTER → 2020-10-01 | Outpatient (CLI) | payer BC ==
[2020-10-01 20:30] LABS: Albumin 4.9 g/dL (3.80-4.90); Albumin/Globulin Ratio 1.96 (1.60-3.17); Anion Gap 13.4 mmol/L (4.00-12.00); BUN/Creat Ratio 12.22 Ratio (12.00-20.00); Calcium 10.2 mg/dL (8.7-10.3); Carbon Dioxide 22.6 mmol/L (21.6-31.8); Chol/HDL Ratio 2.92; Globulin 2.5 g/dL (1.6-3.3); Non-African American GFR(CKD) 72.5 (60.0-200.0); Potassium 4.6 mmol/L (3.5-5.5); Total Bilirubin 0.7 mg/dL (0.3-1.2); Total Protein 7.4 g/dL (6.2-8.2)
== END | disposition home or self-care (01) ==
LOC: LABWHC1 07:43
PROVIDERS: ATTEND Internal Medicine Interventional Cardiology
DX: E78.2 Mixed hyperlipidemia (principal)
CPT/HCPCS: 36415; 80053; 80061

== ENCOUNTER → 2021-04-11 | Outpatient (CLI) | payer BC ==
[2021-04-11 11:33] LABS: ALT 27 U/L (8-44); AST 23 U/L (13-35); African American GFR (CKD) 96.2 (60.0-200.0); Albumin 4.8 g/dL (3.8-4.9); Albumin/Globulin Ratio 2.09 (1.60-3.17); Alkaline Phosphatase 99 U/L (41-126); BUN/Creat Ratio 14.25 Ratio (12.00-20.00); Blood Urea Nitrogen 11.4 mg/dL (9.0-27.0); Calcium 9.6 mg/dL (8.7-10.3); Carbon Dioxide 24.6 mmol/L (20.0-27.5); Chloride 102 mmol/L (96-109); Chol/HDL Ratio 3.43 Ratio; Globulin 2.3 g/dL (1.6-3.3); Glucose 105 mg/dL (70-110); LDL Cholesterol,Calculated 96.1 mg/dL (0.0-131.0); Potassium 4.3 mmol/L (3.5-5.5); Sodium 139 mmol/L (135-145); Total Protein 7.1 g/dL (6.2-8.2)
== END | disposition home or self-care (01) ==
LOC: LABWHC1 07:33
PROVIDERS: ATTEND Nurse Practitioner Adult Health
DX: I10 Essential (primary) hypertension (principal); E78.2 Mixed hyperlipidemia
CPT/HCPCS: 36415; 80053; 80061

== ENCOUNTER 2022-06-08 16:10 | Emergency (ER) | payer BC, OTHER ==
--- NOTE | 2022-06-08 16:55 | XR ---
EXAMINATION TYPE: XR chest 2V DATE OF EXAM: 06/08/2022 COMPARISON: 07/23/2020 HISTORY: Fall. Left rib pain. TECHNIQUE: 2 views FINDINGS: Heart is normal. Lungs are clear of consolidation. There are small linear density left lung base. There is left axillary pacemaker. No pleural effusion or pneumothorax present spine is intact. IMPRESSION: Minimal subsegmental atelectasis left lung base appears new compared to last exam. Normal heart.
[2022-06-08] MEDS ORDERED: LIDOCAINE 5% PATCH TOPICAL STA (17:24)
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
[2022-06-08 17:53] VITALS: BP 166/89; PULSE 90; RESP 17; TEMP 97.9
[2022-06-08 23:56] LABS: Urine Alcohol Negative (Negative); Urine Barbiturate Negative (Negative); Urine Cocaine Negative (Negative); Urine Methadone Negative (Negative); Urine Opiates Negative (Negative); Urine Phencyclidine Negative (Negative)
== END 2022-06-08 17:53 | disposition home or self-care (01) ==
LOC: EC 16:10
DX: S20.212A Contusion of left front wall of thorax, initial encounter (principal); M19.90 Unspecified osteoarthritis, unspecified site; F41.9 Anxiety disorder, unspecified; F32.A Depression, unspecified; Z87.891 Personal history of nicotine dependence; W22.8XXA Striking against or struck by other objects, initial encounter; Y99.0 Civilian activity done for income or pay
CPT/HCPCS: 71046; 80306; 99284

== ENCOUNTER → 2022-09-04 | Outpatient (CLI) | payer OTHER ==
[2022-09-04 15:45] LABS: HCT 43.2 % (37.2-46.3); MCH 32.6 pg (27.0-32.0); MCHC 32.4 g/dL (32.0-37.0); MCV 100.5 fL (80.0-97.0); Mean Platelet Volume 10.4 fL (9.5-12.2); NRBC Per 100 WBC 0 /100 WBCS (0.0-0.0); Platelet Count 257 X 10*3/uL (140-440); RDW 12.3 % (11.5-14.5); WBC 5.68 X 10*3/uL (4.50-10.00)
[2022-09-04 15:59] LABS: African American GFR (CKD) 95.7 (60.0-200.0); Anion Gap 13.1 mmol/L (10.00-18.00); Blood Urea Nitrogen 13.3 mg/dL (9.0-27.0); Carbon Dioxide 24.5 mmol/L (20.0-27.5); Non-African American GFR(CKD) 82.5 (60.0-200.0); Potassium 4.3 mmol/L (3.5-5.5)
== END | disposition home or self-care (01) ==
LOC: LABPAT 10:01
PROVIDERS: ATTEND Internal Medicine Clinical Cardiac Electrophysiology
DX: Z01.812 Encounter for preprocedural laboratory examination (principal); I42.8 Other cardiomyopathies
CPT/HCPCS: 80051; 82565; 84520; 85027